=== PATIENT | female | born 1985 | race Caucasian/White ===

== ENCOUNTER 2016-06-15 12:25 | Emergency (ER) | payer MEDICAID ==
[2016-06-15] MEDS ORDERED: OPTIRAY 350 100 ML VIAL HMH IV ONE (13:35)
== END 2016-06-15 16:03 | disposition home or self-care (01) ==
LOC: ER 12:25
DX: O99.342 Other mental disorders complicating pregnancy, second trimester (principal); F41.9 Anxiety disorder, unspecified; Z3A.24 24 weeks gestation of pregnancy; R06.00 Dyspnea, unspecified; F17.210 Nicotine dependence, cigarettes, uncomplicated
CPT/HCPCS: 36415; 71010; 71260; 80053; 82553; 83880; 84484; 85025; 93005